=== PATIENT | female | born 1950 | race Caucasian/White ===

== ENCOUNTER → 2016-11-04 | Outpatient (CLI) | payer OTHER ==
[~2016-11-04] MED LIST: ASPIR 8181 M1 PO; ATORVASTATIN CA40 MG PO; BACTRIM,SEPT1 TABLET PO; ENDOCET 5-3251 EACH PO; FEOSOL325 MG PO; LOTREL; OMEPRAZOLE; OMEPRAZOLE40 M1 PO; POTASSIUM GLUCO99 M1 PO; PRILOSEC40 MG PO; PROCTOFOAM-HC10 GM PR; TOPROL; TOPROL XL50 MG PO; TYLENOL WITH C1 EACH PO; ZESTRIL40 MG PO
== END | disposition home or self-care (01) ==
LOC: RAD 12:00
DX: K25.9 Gastric ulcer, unspecified as acute or chronic, without hemorrhage or perforation (principal); E27.9 Disorder of adrenal gland, unspecified
CPT/HCPCS: 74177

== ENCOUNTER 2016-11-23 11:48 | Day surgery (SDC) | payer OTHER ==
[~2016-11-23] VITALS: Ht 165.1 cm; Wt 83.5 kg
== END 2016-11-23 14:45 | disposition home or self-care (01) ==
LOC: CATH 11:48
DX: I87.8 Other specified disorders of veins (principal); C16.9 Malignant neoplasm of stomach, unspecified; I10 Essential (primary) hypertension; E78.5 Hyperlipidemia, unspecified; Z88.1 Allergy status to other antibiotic agents; Z88.8 Allergy status to other drugs, medicaments and biological substances; Z82.49 Family history of ischemic heart disease and other diseases of the circulatory system; Z82.3 Family history of stroke; Z80.8 Family history of malignant neoplasm of other organs or systems; Z87.891 Personal history of nicotine dependence
CPT/HCPCS: C1751; C1894; J0690; J1644; J2250; J3010; S0020

== ENCOUNTER 2016-12-10 12:50 | Emergency (ER) | payer OTHER | END 2016-12-10 15:45 | LOC: EME → EDBD 12:50 → EME 12:50 | PROC: 5A12012 Performance of Cardiac Output, Single, Manual (ICD-10-PCS; principal; 2016-12-10) | DX: I46.9 Cardiac arrest, cause unspecified (principal); Z85.028 Personal history of other malignant neoplasm of stomach; I10 Essential (primary) hypertension; K21.9 Gastro-esophageal reflux disease without esophagitis | CPT/HCPCS: 80048; 81003; 82150; 83605; 83690; 84484; 85025; 85610; 85730; 86850; 86900; 86901; 87040; 92950; 99281; 99284; G0480 ==